=== PATIENT | female | born 1990 | race American Indian/Alaskan Native ===

== ENCOUNTER 2020-01-26 10:04 | Emergency (ER) | payer SELFPAY ==
[2020-01-26 10:34] VITALS: BP 108/60
--- NOTE | 2020-01-26 10:38 | Emergency Department Report ---
ED Lower Extremity HPI - General Chief Complaint: Extremity Injury, Lower Stated Complaint: RT ANKLE PAIN Time Seen by Provider: 01/26/20 10:32 Source: patient Mode of arrival: Ambulatory Limitations: No Limitations - History of Present Illness Initial Comments: This is a 29-year-old female nontoxic, well nourished in appearance, no acute signs of distress presents to the ED with c/o of right ankle pain x1 week. Patient stated had an injury to right ankle while playing basketball. Patient denies any new trauma or injuries. Denies joint swelling, redness. Agrees to abnormal gait and decreased ROM due to pain. Denies any fever, chills, nausea, vomiting, headache, stiff neck, chest pain or shortness of breath. Patient denies any numbness or tingling. Denies any allergies. MD Complaint: ankle injury Injury: Ankle: Right Type of Injury: inversion Place: street/outdoors Severity: mild Severity scale (0 -10): 8 Improves With: nothing Worsens With: nothing Associated Symptoms: able to partially bear weight. denies: snap/pop sensation, swelling, numbness, tingling, unable to bear weight - Related Data Previous Rx's Medication Instructions Recorded Last Taken Type Naproxen 500 mg PO Q12H PRN #12 tablet 01/26/20 Unknown Rx Allergies Allergy/AdvReac Type Severity Reaction Status Date / Time No Known Allergies Allergy Unverified 01/26/20 10:33 ED Review of Systems ROS: Stated complaint: RT ANKLE PAIN Other details as noted in HPI Constitutional: denies: chills, fever Eyes: denies: eye pain, eye discharge, vision change ENT: denies: ear pain, throat pain Respiratory: denies: cough, shortness of breath, wheezing Cardiovascular: denies: chest pain, palpitations Endocrine: no symptoms reported Gastrointestinal: denies: abdominal pain, nausea, diarrhea Genitourinary: denies: urgency, dysuria, discharge Musculoskeletal: denies: back pain, joint swelling, arthralgia Skin: denies: rash, lesions Neurological: denies: headache, weakness, paresthesias Psychiatric: denies: anxiety, depression Hematological/Lymphatic: denies: easy bleeding, easy bruising ED Past Medical Hx - Past Medical History Previous Medical History?: No - Surgical History Past Surgical History?: Yes Additional Surgical History: Left hip surgery - Medications Home Medications: Home Medications Medication Instructions Recorded Confirmed Last Taken Type Naproxen 500 mg PO Q12H PRN #12 tablet 01/26/20 Unknown Rx ED Physical Exam - General Limitations: No Limitations General appearance: alert, in no apparent distress - Head Head exam: Present: atraumatic, normocephalic - Eye Eye exam: Present: normal appearance - Neck Neck exam: Present: normal inspection, full ROM - Respiratory Respiratory exam: Absent: respiratory distress - Cardiovascular Cardiovascular Exam: Present: regular rate - Extremities Exam Extremities exam: Present: full ROM, tenderness, normal capillary refill. Absent: joint swelling, calf tenderness - Expanded Lower Extremity Exam Right Hip exam: Present: normal inspection, full ROM. Absent: tenderness, swelling Upper Leg exam: Present: normal inspection, full ROM. Absent: tenderness, swelling Knee exam: Present: normal inspection, full ROM. Absent: tenderness, swelling Lower Leg exam: Present: normal inspection, full ROM. Absent: tenderness, swelling Ankle exam: Present: full ROM, tenderness, swelling, ecchymosis. Absent: abrasion, laceration, deformity, crepidus, dislocation, erythema, anterior draw sign Foot/Toe exam: Present: normal inspection, full ROM. Absent: tenderness, swelling, abrasion Neuro vascular tendon exam: Present: no vascular compromise Gait: Positive: observed and limited by pain - Back Exam Back exam: Present: normal inspection, full ROM. Absent: tenderness, CVA tenderness (R), CVA tenderness (L), muscle spasm, paraspinal tenderness, vertebral tenderness, rash noted - Neurological Exam Neurological exam: Present: alert, oriented X3, normal gait - Psychiatric Psychiatric exam: Present: normal affect, normal mood - Skin Skin exam: Present: warm, dry, intact, normal color. Absent: rash ED Course Vital Signs 01/26/20 10:34 Temperature 97.9 F Pulse Rate 85 Respiratory 16 Rate Blood Pressure 108/60 [Right] O2 Sat by Pulse 100 Oximetry Vital Signs 01/26/20 10:34 Temperature 97.9 F Pulse Rate 85 Respiratory 16 Rate Blood Pressure 108/60 [Right] O2 Sat by Pulse 100 Oximetry - Reevaluation(s) Reevaluation #1: 01/26/20 10:39 Patient is speaking in full sentences with no signs of distress noted. ED Lower Extremity MDM - Radiology Data Referring Physician: GIRMA MERA Patient Name: TEO KU Date of : 1990 Sex: Female Report Date: 2020-01-26 Report Status: Finalized [facility] [address] [place] [address] XRay Report Signed Patient: TEO KU MR#: [id number] : 1990 Acct:[id number] Age/Sex: 29 / F ADM Date: 01/26/20 Loc: ED Attending Dr: Ordering Physician: GIRMA MERA NP Date of Service: 01/26/20 Procedure(s): XR ankle 3+V RT Accession Number(s): [id number] cc: GIRMA MERA NP Fluoro Time In Minutes: Right ankle-3 views INDICATION: ankle pain. COMPARISON: None. IMPRESSION: Soft tissue swelling about the ankle, most notably seen laterally. Ankle mortise is symmetric and preserved. No fracture identified. No significant DJD. Signer Name: Damien Lynn MD Signed: 01/26/2020 11:06 AM Workstation Name: [id number] Transcribed By: VIGNESH Dictated By: Damien Lynn MD Electronically Authenticated By: Damien Lynn MD Signed Date/Time: 01/26/20 1106 DD/ 1105 TD/TT: - Medical Decision Making This is a 29-year-old female that presents with right ankle sprain. Patient is stable and was examined by me. Educated on RICE therapy. Provided TRAVIS wrap. Patient was instructed to Follow-up with a orthopedic doctor in 3-5 days or if symptoms worsen and continue return to emergency room as soon as possible. At time of discharge, the patient does not seem toxic or ill in appearance. No acute signs of distress noted. Patient agrees to discharge treatment plan of care. No further questions noted by the patient. Critical care attestation.: If time is entered above; I have spent that time in minutes in the direct care of this critically ill patient, excluding procedure time. ED Disposition Clinical Impression: Right ankle sprain Qualifiers: Encounter type: initial encounter Involved ligament of ankle: unspecified ligament Qualified Code(s): S93.401A - Sprain of unspecified ligament of right ankle, initial encounter Disposition: DC-01 TO HOME OR SELFCARE Is pt being admited?: No Does the pt Need Aspirin: No Condition: Stable Instructions: RICE Therapy (ED), Ankle Sprain (ED) Additional Instructions: Follow-up with a orthopedic doctor in 3-5 days or if symptoms worsen and continue return to the emergency department as soon as possible. no physical activity until cleared by orthopedic Prescriptions: Naproxen 500 mg PO Q12H PRN #12 tablet PRN Reason: Pain , Severe (7-10) Referrals: PRIMARY CAREMD [Referring] - 3-5 Days STACI MAXWELL MD [Staff Physician] - 3-5 Days Forms: Work/School Release Form(ED)
--- NOTE | 2020-01-26 11:10 | XRay Report ---
Right ankle-3 views INDICATION: ankle pain. COMPARISON: None. IMPRESSION: Soft tissue swelling about the ankle, most notably seen laterally. Ankle mortise is symm etric and preserved. No fracture identified. No significant DJD. Signer Name: Damien Lynn MD Signed: 01/26/2020 11:06 AM Workstation Name: [id number]
== END 2020-01-26 12:38 | disposition home or self-care (01) ==
LOC: ED 10:04
DX: S93.401A Sprain of unspecified ligament of right ankle, initial encounter (principal); Z79.899 Other long term (current) drug therapy; Z98.890 Other specified postprocedural states; X58.XXXA Exposure to other specified factors, initial encounter; Y93.67 Activity, basketball; Y92.410 Unspecified street and highway as the place of occurrence of the external cause; Y99.8 Other external cause status